=== PATIENT | female | born 1970 | race Caucasian/White ===

== ENCOUNTER 2021-07-16 10:02 | Outpatient (CLI) | payer BC, SELFPAY ==
--- NOTE | ~2021-07-16 | MM_ITS ---
EXAMINATION: MM screening [facility] BI w itz HISTORY: Screening TECHNIQUE: Craniocaudal and mediolateral oblique 3-D tomosynthesis images were obtained and synthetic 2-D images were generated. CAD analysis was submitted and interpreted. COMPARISON: Comparison to multiple prior studies sequentially, with oldest reviewed study dated 08/06. BREAST PARENCHYMAL COMPOSITION: Breast composed of scattered areas of fibroglandular density. FINDINGS: There is no evidence of suspicious mass, calcification, or architectural distortion to sugg est malignancy in either breast. There has been no suspicious interval change. IMPRESSION: 1. No mammographic evidence of malignancy. 2. Recommend routine screening mammography in one year. BI-RADS Category 1: Negative Reviewed, dictated and finalized at location A.
== END 2021-07-16 10:03 | disposition home or self-care (01) ==
LOC: ANHIMG 10:05
PROVIDERS: PCP Physician Assistant; Visit Provider Physician Assistant
DX: Z12.31 Encounter for screening mammogram for malignant neoplasm of breast (principal)
CPT/HCPCS: 77063; 77067

== ENCOUNTER 2021-10-23 00:04 | Day surgery (SDC) | payer BC, SELFPAY ==
[2021-10-02 09:34] VITALS: BMI 31.4
--- NOTE | 2021-10-22 13:28 | PM.HPGS ---
History of Present Illness History of Present Illness Consent: Risks, benefits, and alternatives have been discussed and questions answered. Patient agrees to proceed with procedure. Chief complaint: neoplasm screening Narrative: Oumou Moncada is a 51 year old female referred for colon cancer screening Review of Systems Review of Systems: All systems reviewed & are unremarkable except as noted in HPI and below PMFSH Past Medical History Medical History HTN (hypertension) Hyperlipidemia Hypothyroidism Obesity Surgical History Surgical History H/O hernia repair Family History Family History Father Family history of hypercholesterolemia Grandparent Family history of glaucoma Family history of cardiovascular disease Acute myocardial infarction Mother Hypertension Family history of coronary artery disease Other Carcinoma of colon Family history of heart disease in male family member before age 55 Social History Social History Smoking status: Never smoker Drinks per week: 1 Substance use: never Substance use type: does not use Living arrangements: with family Spiritual care concerns: No Meds Home Medications and Allergies Home Medications Medication Instructions Recorded Confirmed Type amlodipine 10 mg PO DAILY 10/02/21 10/23/21 History atorvastatin 10 mg PO DAILY 10/02/21 10/23/21 History hydrochlorothiazide 25 mg PO DAILY 10/02/21 10/23/21 History levothyroxine 100 mcg PO DAILY 10/02/21 10/23/21 History lisinopril 40 mg PO DAILY 10/02/21 10/23/21 History Allergies Allergy/AdvReac Type Severity Reaction Status Date / Time No Known Allergies Allergy Verified 10/23/21 06:22 Exam Resp: Auscultation: clear to auscultation bilaterally Cardio: Rate: regular rate Rhythm: regular rhythm GI: GI Palp: Yes Soft to palpation and No Tenderness to palpation present (GI) Assessment and Plan Assessment and plan (1) Colon cancer screening: Code(s): Z12.11 - Encounter for screening for malignant neoplasm of colon Status: Acute Assessment and Plan: Colonoscopy with possible biopsy or polypectomy or cautery or injection of substances.
[2021-10-23 06:23] VITALS: BP 135/75; PULSE 73; RESP 17; TEMP 36.7; O2SAT 99; BMI 31.8
[2021-10-23] MEDS: LACTATED RINGERS 1,000 ML 150 ML IV CONT (06:28)
--- NOTE | 2021-10-23 06:38 | P.PNAN_ITS ---
Anes - Initial Pre Proc Eval Procedure: Operation Date: 10/23/21 07:30 Proposed Procedures p Screening Colonoscopy - Oseas Rodriguez MD Date/Time: 10/23/21 06:38 Surgeon: Oseas Rodriguez MD Pre Op Diagnosis: neoplasm screening Patient Data Age: 51 Gender: F Height: 1.8 m Weight: 103.5 kg Last Vital Signs Temp 36.7 C 10/23/21 06:23 Pulse 73 10/23/21 06:23 Resp 17 10/23/21 06:23 BP 135/75 10/23/21 06:23 Pulse Ox 99 10/23/21 06:23 Allergies Allergy/AdvReac Type Severity Reaction Status Date / Time No Known Allergies Allergy Verified 10/23/21 06:22 Home Medications Medication Instructions Recorded Confirmed Type amlodipine 10 mg PO DAILY 10/02/21 10/23/21 History atorvastatin 10 mg PO DAILY 10/02/21 10/23/21 History hydrochlorothiazide 25 mg PO DAILY 10/02/21 10/23/21 History levothyroxine 100 mcg PO DAILY 10/02/21 10/23/21 History lisinopril 40 mg PO DAILY 10/02/21 10/23/21 History Patient hx anesthesia problems: none Family hx anesthesia problems: none Results Review: All pre-operative results and documents have been reviewed as part of the pre-operative evaluation. [facility] Past Medical History Medical History (Updated 10/23/21 @ 06:40 by Zhao Raymundo MD) HTN (hypertension) Hyperlipidemia Hypothyroidism Obesity Surgical History Surgical History (Updated 10/23/21 @ 06:41 by Zhao Raymundo MD) H/O hernia repair Family History Family History Father Family history of hypercholesterolemia Grandparent Family history of glaucoma Family history of cardiovascular disease Acute myocardial infarction Mother Hypertension Family history of coronary artery disease Other Carcinoma of colon Family history of heart disease in male family member before age 55 Social History Social History Smoking status: Never smoker Drinks per week: 1 Substance use: never Substance use type: does not use Living arrangements: with family Spiritual care concerns: No Anes - Eval Final PreProcedure Day of Procedure 10/23/21 06:38 Patient weight: obese Heart: regular rate and rhythm Lungs: clear to auscultation Airway: Mallampati scale class II Neurological: alert and oriented Last oral intake: >/= 8 hours ASA classification: III Emergent: no Anesthetic plan: proceed Anesthesia type and monitoring: general GIVS and standard monitoring Results Review: All pre-operative results and documents have been reviewed as part of the pre-operative evaluation. Informed Consent: The patient's anesthetic plan and its attendant risks and benefits were discussed with the patient/family/POA. Questions were solicited and answers provided to the satisfaction of the patient/family/POA.
[2021-10-23 08:00] VITALS: BP 106/61; PULSE 82; RESP 20; O2SAT 99
[2021-10-23 08:02] VITALS: BP 102/72; PULSE 73; RESP 17; O2SAT 98
[2021-10-23 08:12] VITALS: BP 122/72; PULSE 62; RESP 17; O2SAT 99
== END 2021-10-23 08:25 | disposition home or self-care (01) ==
PROVIDERS: PCP Physician Assistant; Visit Provider Internal Medicine Gastroenterology
PROC: 0DJD8ZZ Inspection of Lower Intestinal Tract, Via Natural or Artificial Opening Endoscopic (ICD-10-PCS; CPT 45378; principal; 2021-10-23 07:30)
DX: Z12.11 Encounter for screening for malignant neoplasm of colon (principal); E03.9 Hypothyroidism, unspecified; I10 Essential (primary) hypertension; E78.5 Hyperlipidemia, unspecified; E66.9 Obesity, unspecified; Z68.31 Body mass index [BMI] 31.0-31.9, adult
CPT/HCPCS: 45378; J2704; J7120

== ENCOUNTER 2023-11-17 09:47 | Outpatient (CLI) | payer BC, SELFPAY ==
--- NOTE | ~2023-11-17 | MM_ITS ---
EXAMINATION: MM screening [facility] BI w itz HISTORY: Screening mammogram, family history of breast cancer in her sister. TECHNIQUE: Craniocaudal and mediolateral oblique 3-D tomosynthesis images were obtained and synthetic 2-D images were generated. CAD analysis was submitted and interpreted. COMPARISON: 07/16/2021, 06/09/2018, 06/05/2018, 08/06/2015 BREAST PARENCHYMAL COMPOSITION: There are scattered areas of fibroglandular density. FINDINGS: RIGHT BREAST: No suspicious mass, calcification, or architectural distortion are identified to sugges t malignancy. There has been no suspicious interval change. LEFT BREAST: An asymmetry is present in the anterior/middle third of the slightly outer breast 4 cm f rom the nipple on the craniocaudal view. In addition, an asymmetry is present in the posterior third of the outer breast 12 cm from the nipple on the craniocaudal view. IMPRESSION: 1. Left breast asymmetries. 2. Additional mammographic views and possible breast ultrasound are recommended. BI-RADS Category 0: Incomplete: Needs additional imaging evaluation. Reviewed, dictated and finalized at location A. HEALTH CLINICIAN IMPRESSION: 1. Left breast asymmetries. 2. Additional mammographic views and possible breast ultrasound are recommended . BI-RADS Category 0: Incomplete: Needs additional imaging evaluation.
== END 2023-11-17 09:48 | disposition home or self-care (01) ==
PROVIDERS: PCP Physician Assistant; Visit Provider Physician Assistant
DX: Z12.31 Encounter for screening mammogram for malignant neoplasm of breast (principal); R92.8 Other abnormal and inconclusive findings on diagnostic imaging of breast
CPT/HCPCS: 77063; 77067

== ENCOUNTER 2023-12-23 12:21 | Outpatient (CLI) | payer BC, SELFPAY ==
--- NOTE | ~2023-12-23 | MM_ITS ---
EXAMINATION: MM diagnostic [facility] w itz HISTORY: Left breast mammographic asymmetries reported on 11/17/2023 screening mammogram TECHNIQUE: Additional 3-D tomosynthesis images of the left breast were performed, including rolled me dial and lateral craniocaudal Tomosynthesis images, and synthetic 2-D images were generated. CAD anal ysis was submitted and interpreted. COMPARISON: 11/17/2023ilateral screening mammogram FINDINGS: No suspicious mass or architectural distortion, malignant calcification, skin thickening or retraction is detected. No suspicious mass or architectural distortion. IMPRESSION: 1. No mammographic evidence of malignancy 2. Routine annual mammographic screening is recommended BI-RADS Category 1: Negative Reviewed, dictated and finalized at location A. SKIMMER
== END 2023-12-23 12:22 | disposition home or self-care (01) ==
PROVIDERS: PCP Physician Assistant; Visit Provider Physician Assistant
DX: R92.8 Other abnormal and inconclusive findings on diagnostic imaging of breast (principal)
CPT/HCPCS: 77061; 77065; G0279

== ENCOUNTER 2025-06-12 07:49 | Outpatient (CLI) | payer BC, SELFPAY ==
--- NOTE | ~2025-06-12 | MM_ITS ---
EXAMINATION: MM screening [facility] BI w itz HISTORY: Screening TECHNIQUE: Craniocaudal and mediolateral oblique 3-D tomosynthesis images were obtained and synthetic 2-D images were generated. CAD analysis was submitted and interpreted. COMPARISON: Comparison to multiple prior studies sequentially, with oldest reviewed study dated 12/2020. BREAST PARENCHYMAL COMPOSITION: Not dense: There are scattered areas of fibroglandular density. FINDINGS: There is no evidence of suspicious mass, calcification, or architectural distortion to sugg est malignancy in either breast. There has been no suspicious interval change. IMPRESSION: 1. No mammographic evidence of malignancy. 2. Recommend routine screening mammography in one year. BI-RADS Category 1: Negative Reviewed, dictated and finalized at location []
--- OUTSIDE RECORDS SUMMARY | 2025-06-12 07:59 | XMS_ITS | Clinical Summary ---
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
--- OUTSIDE RECORDS SUMMARY | 2025-06-12 07:59 | XMS_ITS | Clinical Summary ---
Author Organization [facility] Address [address] [facility] Attn: Epic Prelude ADT YUMIKO COTTON [id number] Care Team Providers Care Health Promoter Name Role Phone Unavailable Primary Care Provider Unavailabl e Allergies No known active allergies Medications lisinopriL (PRINIVIL) 40 mg tablet Take 1 Tablet (40 mg) by mouth daily. 30 Tablet 3 Active lisinopriL (PRINIVIL) 40 mg tablet Take 1 Tablet (40 mg) by mouth daily. 30 Tablet 5 10/23/2023 1:40 PM ANESTHESIOLOGIST ATTENDING 3 Active amLODIPine (NORVASC) 10 mg tablet TAKE ONE TABLET BY MOUTH ONCE DAILY 30 Tablet 6 06/06/2024 5:13 PM CDT 4 Active atorvastatin (LIPITOR) 10 mg tablet TAKE ONE TABLET BY MOUTH ONCE DAILY 30 Tablet 6 06/06/2024 5:13 PM CDT 4 Active hydroCHLOROthi azide 25 mg tablet TAKE ONE TABLET BY MOUTH ONCE DAILY 30 Tablet 6 06/06/2024 5:13 PM CDT 4 Active predniSONE (DELTASONE) 20 mg tablet Take 2 tablets by mouth once daily for 5 days with food. Do not take with aspirin or NSAIDS such as Aleve or ibuprofen 10 Tablet 09/24/2024 9:13 AM ANESTHESIOLOGIST ATTENDING 4 Active albuterol sulfate HFA 90 mcg/actuation aerosol inhaler Administer 2 puffs by mouth every 4 hours as needed 8.5 Gram 09/24/2024 9:13 AM ANESTHESIOLOGIST ATTENDING 4 Active benzonatate (Tessalon Perles) 100 mg capsule Take 1 Capsule (100 mg) by mouth every 8 hours as needed. 15 Capsule 09/24/2024 9:13 AM ANESTHESIOLOGIST ATTENDING 4 Active estradioL (ESTRACE) 0.01% (0.1 mg/g) vaginal cream Place 1 gram vaginally every other day for the first two weeks. After that, continue using 1 gram twice weekly 42.5 Gram 5 01/05/2025 11:07 AM ANESTHESIOLOGIST ATTENDING 5 Active amLODIPine (NORVASC) 10 mg tablet TAKE ONE TABLET BY MOUTH ONCE DAILY 30 Tablet 6 05/31/2025 10:43 AM CDT 5 Active atorvastatin (LIPITOR) 10 mg tablet TAKE ONE TABLET BY MOUTH ONCE DAILY 30 Tablet 6 05/31/2025 10:43 AM CDT 5 Active hydroCHLOROthi azide 25 mg tablet TAKE ONE TABLET BY MOUTH ONCE DAILY 30 Tablet 6 05/31/2025 10:43 AM CDT 5 Active levothyroxine 100 mcg tablet Take 1 Tablet (100 mcg) by mouth daily in the morning. 90 Tablet 3 05/31/2025 10:43 AM CDT 5 Active ofloxacin (OCUFLOX) 0.3 % solution INSTILL 1 DROP INTO AFFECTED EYE(S) 4 TIMES PER DAY FOR 5-7 days 10 mL 04/09/2025 7:18 PM CDT 5 Active lisinopriL (PRINIVIL) 40 mg tablet Take 1 Tablet (40 mg) by mouth daily. 30 Tablet 5 05/31/2025 10:43 AM CDT 5 Active lisinopriL (PRINIVIL) 40 mg tablet Take 1 Tablet (40 mg) by mouth daily. 30 Tablet 5 02/25/2025 4:12 PM CDT 5 05/31/20 25 Discontinu ed(Reorder ) Encounters Date Type Department Care Team Description 03/19/2025 External Device Data [facility] ABSTRACTION Provider, Abstract from Last 3 Months Social History Tobacco Use Types Packs/Day Years Used Date Smoking Tobacco: Never Assessed Comments Unknown Sex and Gender Information Value Date Recorded Sex Assigned at Not on file Legal Sex Female 3:27 PM CDT Gender Identity Not on file Sexual Orientation Not on file Plan of Treatment Health Maintenance Due Date Last Done Comments DTAP/TDAP/TD VACCINES (1 - Tdap) 1987 HEPATITIS B VACCINES (1 of 3 - 19+ 3-dose series) 08/14 HPV/Cotest (21-29) 1989 CERVICAL CANCER SCREENING 1998 HPV/Cotest (30-65) 1998 PAP SMEAR 1998 BREAST CANCER SCREENING 2008 COLORECTAL SCREENING 2013 Colorectal Cancer Screening 2013 FIT-DNA Q 3 years 2013 FIT/FOBT Q 1 year 2013 Flex Sig/CT Colonography Q 5 years 2013 ZOSTER VACCINE (1 of 2) 2018 INFLUENZA VACCINE (#1) 2025 Insurance RX [employer] Commercial [employer] (INTERNAL) [facility]
--- OUTSIDE RECORDS SUMMARY | 2025-06-12 07:59 | XMS_ITS | Referral Summary ---
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
== END 2025-06-12 07:50 | disposition home or self-care (01) ==
LOC: ANHIMG 07:51
PROVIDERS: PCP Physician Assistant; Visit Provider Physician Assistant
DX: Z12.31 Encounter for screening mammogram for malignant neoplasm of breast (principal)
CPT/HCPCS: 77063; 77067

== ENCOUNTER 2025-09-25 14:37 | Outpatient (CLI) | payer BC, SELFPAY ==
--- NOTE | ~2025-09-25 | XR_ITS ---
EXAMINATION: XR chest 2V DATE: 09/25/2025 15:00 INDICATION: Cough and left lateral anterior chest pain TECHNIQUE: PA and lateral views of the chest were obtained. COMPARISON: None FINDINGS: The lungs are clear with no focal airspace opacities, pulmonary edema, pleural effusion or pneumothorax. The cardiomediastinal silhouette is normal. Visualized bones and soft tissues are unremarkable. IMPRESSION: 1. No acute cardiopulmonary disease. Reviewed, dictated and finalized at location A. ATIONAL TECHNICIAN
== END 2025-09-25 14:38 | disposition home or self-care (01) ==
LOC: MICIMG 14:39
PROVIDERS: PCP Physician Assistant; Visit Provider Physician Assistant
DX: R05.9 Cough, unspecified (principal)
CPT/HCPCS: 71046